=== PATIENT | female | born 1970 | race Caucasian/White ===

== ENCOUNTER → 2018-04-14 | Day surgery (SDC) | payer BC ==
[2018-04-09 14:39] VITALS: Ht 167.6 cm; Wt 84.1 kg
[~2018-04-14] VITALS: Ht 167.6 cm; Wt 84.1 kg
[~2018-04-14] MED LIST: CYAN30003 INJ; DICY10CA55 PO; ERGO500037 PO; HYDR12.56 PO; LIDOCAINE HCL 2% 2 ML VIAL (20MG/ML) ONE; OMEP40CA41 PO; ONDANSETRON INJ 2 MG/ML 2 ML VIAL ONE; POLY335019 PO; PROPOFOL IV EMULSION 10 MG/ML 20 ML VIAL ONE; SODIUM CHLORIDE 0.9% 500ML 500 ML IV ONE; TOPI200T6 PO; VNTHFA/IN INH
--- NOTE | 2018-04-14 10:42 | Endo History and Physical ---
History & Physical Date of Service: Apr 14, 2018. Chief Complaint: Referring Physician: History of Present Illness Abdominal pain, bloating and altered bowel habits Past Surgical History Hx Cardiac Surgery: No Hx Internal Defibrillator: No Hx Pacemaker: No Hx Abdominal Surgery: Yes ( X 3, ANDREW, PARTIAL HYSTERECTOMY, LAPAROSCOPY) Hx of Implantable Prosthesis: No Hx Post-Op Nausea and Vomiting: Yes (SEVERE) Hx Cancer Surgery: Yes (SKIN EXCISION) Hx Thoracic Surgery: No Hx Orthopedic: Yes (RT/LEFT KNEE SURGERY) Hx Urinary Tract Surgery: No Family History Colon CA, IBD Social History Smoking Status: Never Smoker Hx Substance Use: No Hx Alcohol Use: No Allergies Coded Allergies: Adhesives (Verified Allergy, Unknown, SKIN IRRITATION, 04/09/18) Latex (Verified Allergy, Unknown, HIVES/RASH, 04/09/18) Codeine (Verified Adverse Reaction, Mild, HIVES, 04/09/18) Current Medications Reported Home Medications Medications Dose Route/Sig Max Daily Dose Days Date Category Miralax (Polyethylene Glycol 3350) 1 Pow Pow 17 Gm PO QAM 04/09/18 Reported Prilosec (Omeprazole) 40 Mg Cap 40 Mg PO QAM 04/09/18 Reported Bentyl (Dicyclomine Hcl) 10 Mg Cap 1 Cap PO TID PRN 04/09/18 Reported Ventolin Hfa (Albuterol) 200 Puffs/36091 Mcg Aers 2-4 Puffs INH Q6H PRN 04/09/18 Reported Vitamin B12 (Cyanocobalamin) 3,000 Mcg Sub 1 Dose INJ MONTHLY 04/09/18 Reported Vitamin D 70268 Unit (Ergocalciferol) 50,000 Unit Cap 50,000 Unit PO WK 04/09/18 Reported Hctz (Hydrochlorothiazide) 12.5 Mg Cap 12.5 Mg PO QAM 04/09/18 Reported Topamax (Topiramate) 200 Mg Tab 200 Mg PO BID 04/09/18 Reported Vital Signs Weight (Kilograms): 84.09 Height (Feet): 5 Height (Inches): 6 Physical Exam General Appearance: no apparent distress Respiratory/Chest: Auscultation: breath sounds normal Cardiovascular: Heart Auscultation: RRR Abdomen: Inspection & Palpation: non-distended Assessment and Plan Stable for egd and colonoscopy
--- NOTE | 2018-04-14 11:47 | Discharge Instructions ---
Endoscopy Patient Instructions Date / Procedure(s) Performed Apr 14, 2018. Colonoscopy, EGD Allergy Information Coded Allergies: Adhesives (Verified Allergy, Unknown, SKIN IRRITATION, 04/09/18) Latex (Verified Allergy, Unknown, HIVES/RASH, 04/09/18) Codeine (Verified Adverse Reaction, Mild, HIVES, 04/09/18) Discharge Date / Findings Apr 14, 2018. Gastritis. Normal colonoscopy Provider Instructions Activity Restrictions - No exercising or heavy lifting for 24 hours. - Do not drink alcohol the day of the procedure. - Do not drive a car or operate machinery until the day after the procedure. - Do not make any important decisions or sign important papers in 24 hours after the procedure. Following Day: - Return to full activity which may include returning to work/school. Diet Start your diet with liquids and light foods (jello, soup, juice, toast). Then eat your usual diet if not nauseated. Treatment For Common After Affects For mild abdominal pain, bloating, or excessive gas: - Rest - Eat lightly - Lie on right side Follow-Up Information Follow-up with Alison Thomas as scheduled Anesthesia Information What You Should Know You have had a procedure that required some medicine to reduce anxiety and discomfort. This treatment is called moderate sedation. After receiving the treatment, you may be sleepy, but you will be able to breathe on your own. The effects of the treatment may last for several hours. Follow these instructions along with Activity/Diet recommendations noted above: * Do NOT do anything where dizziness or clumsiness would be dangerous. * Rest quietly at home today, then you can be up and about tomorrow. * Have a responsible person stay with you the rest of today. * You may have had an I.V. today. If so, you may take the dressing off later today. Recommendations Call your doctor if: * Trouble breathing * Continuous vomiting for more than 24 hours * Temperature above 101 degrees * Severe abdominal pain or bloating * Pain not relieved by pain medicine ordered * There is increased drainage or redness from any incision * A large amount of rectal bleeding greater than 2-3 tablespoons. (If you had a polyp/s removed or have hemorrhoids, a small amount of blood - from the rectum is to be expected.) * You have any unanswered questions or concerns. IN THE EVENT OF A SERIOUS EMERGENCY, GO TO THE NEAREST EMERGENCY ROOM Your discharge instructions were prepared by provider Bob Briceño. Patient Instructions Signature Page Emilia Muniz Patient (or Guardian) Signature/Date: I have read and understand the instructions given to me by my caregivers. Caregiver/RN/Doctor Signature/Date: The above-named patient and/or guardian has received patient instructions on this date. + Original Patient Signature Page (only) stays with chart. Please make copy for patient.
--- NOTE | 2018-04-14 11:53 | GI REPORT ---
Patient Name: Emilia Muniz Procedure Date: 04/14/2018 11:09 AM Date of : 1970 Admit Type: Outpatient Age: 48 Gender: Female Attending MD: Bob Briceño MD Procedure: Upper GI endoscopy Providers: Bob Briceño MD Referring MD: Alison Clements Indications: Epigastric abdominal pain, Abdominal bloating Medicines: Monitored Anesthesia Care Complications: No immediate complications. Estimated Blood Loss: Estimated blood loss: none. Procedure: Pre-Anesthesia Assessment: - Prior to the procedure, a History and Physical was performed, and patient medications and allergies were reviewed. The patient is competent. The risks and benefits of the procedure and the sedation options and risks were discussed with the patient. All questions were answered and informed consent was obtained. Patient identification and proposed procedure were verified by the physician and the nurse in the procedure room. Mental Status Examination: alert and oriented. Airway Examination: normal oropharyngeal airway and neck mobility. Respiratory Examination: clear to auscultation. CV Examination: normal. ASA Grade Assessment: II - A patient with mild systemic disease. After reviewing the risks and benefits, the patient was deemed in satisfactory condition to undergo the procedure. The anesthesia plan was to use monitored anesthesia care (MAC). Immediately prior to administration of medications, the patient was re-assessed for adequacy to receive sedatives. The heart rate, respiratory rate, oxygen saturations, blood pressure, adequacy of pulmonary ventilation, and response to care were monitored throughout the procedure. The physical status of the patient was re-assessed after the procedure. After obtaining informed consent, the endoscope was passed under direct vision. Throughout the procedure, the patient's blood pressure, pulse, and oxygen saturations were monitored continuously. The scope was introduced through the mouth, and advanced to the second part of duodenum. The upper GI endoscopy was accomplished without difficulty. The patient tolerated the procedure well. Findings: The examined esophagus was normal. The Z-line was regular and was found 40 cm from the incisors. Mildly erythematous mucosa was found in the gastric antrum. Biopsies were taken with a cold forceps for Helicobacter pylori testing. Verification of patient identification for the specimen was done by the physician and nurse using the patient's name and date. A few small sessile polyps with no stigmata of recent bleeding were found in the gastric body. Biopsies were taken with a cold forceps for histology. The duodenal bulb and second portion of the duodenum were normal. Biopsies for histology were taken with a cold forceps for evaluation of celiac disease. Impression: - Normal esophagus. - Z-line regular, 40 cm from the incisors. - Erythematous mucosa in the antrum. Biopsied. - A few gastric polyps. Biopsied. - Normal duodenal bulb and second portion of the duodenum. Biopsied. Recommendation: - Await pathology results. - Perform a colonoscopy today. Bob Briceño MD 04/14/2018 11:52:41 AM This report has been signed electronically. Note Initiated On: 04/14/2018 11:09 AM Number of Addenda: 0 I attest to the content of the Intraoperative Record and orders documented therein, exceptions below {[id number]}
--- NOTE | 2018-04-14 12:07 | GI REPORT ---
Patient Name: Emilia Muniz Procedure Date: 04/14/2018 11:10 AM Date of : 1970 Admit Type: Outpatient Age: 48 Gender: Female Attending MD: Bob Briceño MD Procedure: Colonoscopy Providers: Bob Briceño MD Referring MD: Alison Clements Indications: Chronic diarrhea Medicines: Monitored Anesthesia Care Complications: No immediate complications. Estimated Blood Loss: Estimated blood loss: none. Procedure: Pre-Anesthesia Assessment: - Prior to the procedure, a History and Physical was performed, and patient medications and allergies were reviewed. The patient is competent. The risks and benefits of the procedure and the sedation options and risks were discussed with the patient. All questions were answered and informed consent was obtained. Patient identification and proposed procedure were verified by the physician and the nurse in the procedure room. Mental Status Examination: alert and oriented. Airway Examination: normal oropharyngeal airway and neck mobility. Respiratory Examination: clear to auscultation. CV Examination: normal. ASA Grade Assessment: II - A patient with mild systemic disease. After reviewing the risks and benefits, the patient was deemed in satisfactory condition to undergo the procedure. The anesthesia plan was to use monitored anesthesia care (MAC). Immediately prior to administration of medications, the patient was re-assessed for adequacy to receive sedatives. The heart rate, respiratory rate, oxygen saturations, blood pressure, adequacy of pulmonary ventilation, and response to care were monitored throughout the procedure. The physical status of the patient was re-assessed after the procedure. After I obtained informed consent, the scope was passed under direct vision. Throughout the procedure, the patient's blood pressure, pulse, and oxygen saturations were monitored continuously. The scope was introduced through the anus and advanced to the terminal ileum. The terminal ileum, ileocecal valve, appendiceal orifice, and rectum were photographed. The quality of the bowel preparation was good. The colonoscopy was performed without difficulty. The patient tolerated the procedure well. Findings: The perianal and digital rectal examinations were normal. The terminal ileum appeared normal. The colon (entire examined portion) appeared normal. Biopsies for histology were taken with a cold forceps from the entire colon for evaluation of microscopic colitis. Verification of patient identification for the specimen was done by the physician and nurse using the patient's name and date. Non-bleeding internal hemorrhoids were found during retroflexion. The hemorrhoids were small. Impression: - The examined portion of the ileum was normal. - The entire examined colon is normal. Biopsied. - Non-bleeding internal hemorrhoids. Recommendation: - Discharge patient to home. - Await pathology results. - Return to referring physician. Bob Briceño MD 04/14/2018 12:06:53 PM This report has been signed electronically. Note Initiated On: 04/14/2018 11:10 AM Number of Addenda: 0 I attest to the content of the Intraoperative Record and orders documented therein, exceptions below {[id number]}
[2018-04-14 12:15] VITALS: BP 110/56; PULSE 68; O2SAT 100
--- NOTE | 2018-04-14 15:11 | Anesthesiology Progress Note ---
Anesthesia Post Op Note Date & Time Apr 14, 2018 at 15:11 Vital Signs Pain Intensity: 5 Vital Signs Past 12 Hours Date Time Temp Pulse Resp B/P (MAP) Pulse Ox O2 Delivery O2 Flow Rate FiO2 04/14/18 12:15 68 20 110/56 (74) 100 Room Air 04/14/18 12:00 57 20 106/58 (74) 98 Room Air 04/14/18 11:45 63 16 100/58 (72) 98 04/14/18 10:46 36.6 68 18 136/78 (97) 99 Room Air Notes Mental Status: alert / awake / arousable, participated in evaluation Pt Amnestic to Procedure: Yes Nausea / Vomiting: adequately controlled Pain: adequately controlled Airway Patency, RR, SpO2: stable & adequate BP & HR: stable & adequate Hydration State: stable & adequate Anesthetic Complications: no major complications apparent
== END | disposition home or self-care (01) ==
LOC: C.GI 09:18
PROVIDERS: ATTEND Student in an Organized Health Care Education/Training Program
DX: R14.0 Abdominal distension (gaseous) (principal); R10.13 Epigastric pain; D13.1 Benign neoplasm of stomach; K29.70 Gastritis, unspecified, without bleeding; K64.8 Other hemorrhoids; R19.4 Change in bowel habit; J45.909 Unspecified asthma, uncomplicated; K21.9 Gastro-esophageal reflux disease without esophagitis; Z88.5 Allergy status to narcotic agent; Z91.040 Latex allergy status; Z90.49 Acquired absence of other specified parts of digestive tract; Z90.710 Acquired absence of both cervix and uterus; Z85.828 Personal history of other malignant neoplasm of skin